=== PATIENT | female | born 1995 | race Caucasian/White ===

== ENCOUNTER 2017-04-12 16:30 | Outpatient (CLI) | payer OTHER | END 2017-04-12 16:31 | disposition home or self-care (01) | LOC: LAB.R 16:30 | PROVIDERS: ATTEND Family Medicine | DX: N39.0 Urinary tract infection, site not specified (principal) | CPT/HCPCS: 87086 ==

== ENCOUNTER 2018-05-30 08:00 | Outpatient (CLI) | payer BC, OTHER | END 2018-05-30 08:01 | disposition home or self-care (01) | LOC: LAB.R 08:00 | PROVIDERS: ATTEND Registered Nurse | DX: R87.619 Unspecified abnormal cytological findings in specimens from cervix uteri (principal) | CPT/HCPCS: 87491; 87591 ==

== ENCOUNTER 2018-11-13 14:48 | Outpatient (CLI) | payer BC | END 2018-11-13 14:49 | disposition home or self-care (01) | LOC: LAB 14:48 | PROVIDERS: ATTEND Physician Assistant | DX: R07.9 Chest pain, unspecified (principal) | CPT/HCPCS: 36415; 85379 ==

== ENCOUNTER 2019-01-30 10:37 | Emergency (ER) | payer BC ==
--- NOTE | 2019-01-30 12:12 | ED Physician Documentation ---
PD HPI LOWER EXT INJURY - Stated complaint Stated Complaint: L KNEE PX - Chief complaint Chief Complaint: Ext Problem - History obtained from History obtained from: Patient - History of Present Illness PD HPI LOW EXT INJURY LOCATION: Left (Starting yesterday she twisted wrong and has is pain-free at rest but it hurts to walk. She is never had this before. No other injuries. No fall per se. She can walk but it is difficult.) Review of Systems Constitutional: reports: Reviewed and negative Throat: reports: Reviewed and negative Cardiac: reports: Reviewed and negative PD PAST MEDICAL HISTORY - Present Medications Home Medications: Ambulatory Orders Medication Instructions Recorded Confirmed Cyclobenzaprine [Flexeril] 10 mg PO TID PRN 01/30/19 01/30/19 Ibuprofen [Motrin] 800 mg PO Q8H PRN #30 tablet 01/30/19 Valacyclovir HCl [Valtrex] 1,000 mg PO PRN 01/30/19 01/30/19 - Allergies Allergies/Adverse Reactions: Allergies Allergy/AdvReac Type Severity Reaction Status Date / Time levonorgestrel [From Mirena] Allergy Hives Verified 01/30/19 10:45 PD ED PE NORMAL - Vitals Vital signs reviewed: Yes - General General: Alert and oriented X 3, No acute distress - Extremities Extremities: Other (Left knee has a tiny effusion. There is no tenderness. ACL, LCL, MCL, PCL testing is all intact, positive grind testing with eversion suggesting the lateral meniscus injury.) - Neuro Neuro: Alert and oriented X 3, Normal speech Results - Vitals Vitals: Vital Signs - 24 hr 01/30/19 10:42 Temperature 36.5 C Heart Rate 97 Respiratory 18 Rate Blood Pressure 108/66 O2 Saturation 99 Oxygen O2 Source Room air PD MEDICAL DECISION MAKING - ED course ED course: She has an injury of the knee, nothing in the exam to suggest a need for imaging. She is placed in a knee brace and will follow-up with orthopedics if not better in a short timeframe. Departure - Departure Disposition: 01 Home, Self Care Clinical Impression: Strain of left knee Condition: Good Record reviewed to determine appropriate education?: Yes Instructions: ED Meniscal Injury Knee Poss Follow-Up: [facility] [Provider Group] Prescriptions: Ibuprofen [Motrin] 800 mg PO Q8H PRN #30 tablet PRN Reason: PAIN &/OR FEVER Comments: As discussed your examination is most consistent with potentially a mild lateral meniscus injury. Take a few days off of work and wear the knee brace as needed. Follow-up with the orthopedic surgeon next week if not better. Return for new or worsening symptoms. Forms: Activity restrictions
[2019-01-30 12:21] VITALS: BP 116/70
== END 2019-01-30 12:30 | disposition home or self-care (01) ==
LOC: ED 10:37
DX: S86.812A Strain of other muscle(s) and tendon(s) at lower leg level, left leg, initial encounter (principal); X50.1XXA Overexertion from prolonged static or awkward postures, initial encounter
CPT/HCPCS: 99282; 99283